=== PATIENT | male | born 1960 | race Caucasian/White ===

== ENCOUNTER 2020-12-04 07:37 | Outpatient (RCR) | payer OTHER, SELFPAY ==
[2020-12-04] MEDS: COVID-19 VACC, MRNA(PFIZER)/PF 30 MCG/0.3 ML SYRINGE IM (13:24)
[2020-12-25] MEDS: COVID-19 VACC, MRNA(PFIZER)/PF 30 MCG/0.3 ML SYRINGE IM (12:57)
== END 2021-03-02 23:59 ==
LOC: IMMUN 07:37
PROVIDERS: PCP Nurse Practitioner Primary Care; Referring Provider Family Medicine; Visit Provider Family Medicine
DX: Z23 Encounter for immunization (principal)
CPT/HCPCS: 0001A; 0002A; 91300

== ENCOUNTER 2022-10-27 07:55 | Day surgery (SDC) | payer OTHER, SELFPAY ==
[2022-10-27] VITALS (7 sets, daily range): BP systolic 117–135; BP diastolic 81–99; PULSE 17–84; RESP 16–17; TEMP 36.4–36.8; O2SAT 95–98; BMI 26.8
--- NOTE | 2022-10-27 | COLBX_PTH ---
PATIENT: YONG SCHULER LOC: EN U#:[id number] AGE/SX: 62/M ROOM: RE10/27/[address]: Dr. Anirudh Calvin DO : 1960 BED: DIS: 10/27/2022 SPEC #: [id number] RECD: 10/27/22 11:14 STATUS: JAVIER JAYA #: [id number] ALLEN: 10/27/22 00:[address]: Anirudh Calvin DEPT: SURGICAL PATHOLOGY RECD BY: Jay Bermudez ENTERED: 10/27/22 11:14 SP TYPE: COLON BX OT DR: Sybil Linton, [employer] Tissues: Sigmoid colon biopsy Procedures: Surgery Specimen Level IV HEADER OPERATION: Colonoscopy ? open access (MAC) PRE-OP DIAGNOSIS: Screening TISSUE SUBMITTED: Sigmoid colon polyp MICROSCOPIC DIAGNOSIS Sigmoid colon polyp, biopsy: Fragments of tubular adenoma. AM:geni 10/28/2022 MICROSCOPIC DESCRIPTION Slides are reviewed. GROSS DESCRIPTION Received in fixative is one container labeled with the patient's name and designated sigmoid colon polyp. The specimen consists of two irregular fragments of light kohli soft tissue that in aggregate measure 0.6 x 0.4 x 0.1 cm. The specimen is totally submitted in one cassette. / SJ:rg 10/27/2022 TC:5 CPT: 22057
[2022-10-27] MEDS: Lactated Ringers 1,000 ML 15 ML IV (08:10)
--- NOTE | 2022-10-27 08:25 | HP.PCM_ITS ---
HPI - General General Date of Admission: 10/27/22 Date of Service: 10/27/22 Chief Complaint: Screening colon HPI Narrative YONG SCHULER, is a 62 M who presents today for screening colonoscopy. He has a past medical history of arthritis, hypertension. He had a colonoscopy approximately 15 years ago and it was normal. He has no personal history of polyps. Is not having any bleeding. He has no family history of colon cancer or GI related malignancy. All other 16 review systems are negative except as per body mentioned [facility]. [facility] Medical History Alcohol use Cardiology follow-up encounter Heartburn Hemorrhoids History of diverticulitis HTN (hypertension) Low iron Mixed hyperlipidemia Non-smoker Rheumatoid arthritis Spondylitis, ankylosing Wears glasses Wears hearing aid Home Medications amlodipine 2.5 mg tablet 2.5 mg PO QHS 08/14/22 [History Last Taken Unknown] metoprolol tartrate 25 mg tablet 25 mg PO DAILY 08/14/22 [History Last Taken Unknown] etanercept 50 mg/mL (1 mL) subcutaneous syringe (Enbrel) 50 mg subcut QWEEK 09/05/22 [History Last Taken Unknown] isqwiqwk-iwjgahm-ocle-lutein tablet 1 tab PO DAILY 10/24/22 [History Last Taken Unknown] Allergy/AdvReac Type Severity Reaction Status Date / Time No Known Allergies Allergy Verified 10/27/22 08:27 Surgical History History of cardiac catheterization History of colonoscopy Social History (Updated 09/05/22 @ 10:29 by Ana Baer) household members: spouse Smoking Status: Never smoker ROS Review of Systems ROS Unobtainable: other Constitutional Constitutional: Denies fatigue, fever(s), poor appetite, weight gain or weight loss ENT HEENT: Denies mouth lesions Cardiovascular Cardiovascular: Denies abdominal bloating, abdominal edema or abdominal pain Respiratory/Chest Respiratory/Chest: Denies change in mental status, change in phlegm color, chest congestion or chest tightness Gastrointestinal Gastrointestinal: Denies belching, bloating, change in bowel habits, change in stool character, chewing difficulty, coffee ground emesis, constipation, cramping, diarrhea, dyspepsia, dysphagia, early satiety, excessive flatus, fecal incontinence, heartburn, hematemesis, hematochezia, hemorrhoids, loose stools, melena, nausea, odynophagia, rectal bleeding, tenesmus, vomiting or weight changes Genitourinary Genitourinary: Denies abdominal discomfort, burning urination or itching Musculoskeletal Musculoskeletal: Reports as per HPI; Denies muscle weakness or myalgias Integumentary Integumentary: Denies jaundice Neurologic Neurologic: Denies lack of coordination or weakness Psychiatric Psychiatric: Denies confusion, depression, memory loss, mood swings, paranoia or suicidal ideation Endocrine Endocrinology: Denies systems reviewed and no addt'l complaints, except as documented Hematologic/Lymphatic Hematologic/Lymphatic: Denies anemia, easy bleeding, easy bruising or lymphadenopathy Allergic/Immunologic Allergic/Immunologic: Denies systems reviewed and no addt'l complaints, except as documented Physical Exam Const alert General Appearance: cooperative Orientation / Consciousness: oriented to person HEENT hearing grossly normal bilaterally Head and Scalp: normal to inspection Face and Sinus: face symmetric Nose: external nose normal Mouth: oral and palatal mucosa normal Eyes conjunctivae normal General Eye: normal appearance of both eyes Neck full ROM General: normal visual inspection Lymph Lymphatic: no lymphadenopathy noted Chest inspection of chest normal and palpation of chest normal Chest: symmetrical chest wall rise Resp normal respiratory effort Effort and Inspection: able to speak in complete sentences Cardio regular rate GI non-distended Percussion: normal to percussion Rectal Exam: deferred Neuro Speech: speech normal Gait (Neuro): normal gait Assessment & Plan Assessment/Plan (1) Encounter for screening for malignant neoplasm of colon: PLAN: He was explained alternatives, risk, benefits include not withstanding bleeding, infection, sepsis, perforation, need for emergent surgery and . He will have an ASA of 1.
--- NOTE | 2022-10-27 09:40 | OP.COLON_ITS ---
Patient Name: Kendall Morales Procedure Date: 10/27/2022 9:04 AM Date of : 1960 Age: 62 Procedure: Colonoscopy Indications: Screening for colorectal malignant neoplasm Providers: Anirudh Calvin DO Medicines: Monitored Anesthesia Care Patient Profile: This is a 62 year old male. Refer to note in patient chart for documentation of history and physical. Last Colonoscopy: more than 10 years ago. Complications: No immediate complications. Procedure: Pre-Anesthesia Assessment: - Prior to the procedure, a History and Physical was performed, and patient medications and allergies were reviewed. The risks and benefits of the procedure and the sedation options and risks were discussed with the patient. All questions were answered and informed consent was obtained. Patient identification and proposed procedure were verified by the physician in the pre-procedure area. Mental Status Examination: alert and oriented. Airway Examination: normal oropharyngeal airway and neck mobility. Respiratory Examination: clear to auscultation. CV Examination: normal. Prophylactic Antibiotics: The patient does not require prophylactic antibiotics. Prior Anticoagulants: The patient has taken no previous anticoagulant or antiplatelet agents. After reviewing the risks and benefits, the patient was deemed in satisfactory condition to undergo the procedure. The anesthesia plan was to use monitored anesthesia care (MAC). Immediately prior to administration of medications, the patient was re-assessed for adequacy to receive sedatives. The heart rate, respiratory rate, oxygen saturations, blood pressure, adequacy of pulmonary ventilation, and response to care were monitored throughout the procedure. The physical status of the patient was re-assessed after the procedure. After I obtained informed consent, the scope was passed under direct vision. Throughout the procedure, the patient's blood pressure, pulse, and oxygen saturations were monitored continuously. The colonoscope was introduced through the anus and advanced to the cecum, identified by appendiceal orifice and ileocecal valve. The colonoscopy was performed without difficulty. The patient tolerated the procedure well. The quality of the bowel preparation was adequate. Scope In: 9:12:54 AM Scope Withdrawal Time 0 hours 11 minutes 55 seconds Scope Out: 9:27:48 AM Total Procedure Duration Time 0 hours 14 minutes 54 seconds Findings: The perianal and digital rectal examinations were normal. A 5 mm polyp was found in the sigmoid colon. The polyp was sessile. The polyp was removed with a cold snare. Resection and retrieval were complete. Verification of patient identification for the specimen was done. Estimated blood loss was minimal. Multiple small and large-mouthed diverticula were found in the recto-sigmoid colon and sigmoid colon. Impression: - One 5 mm polyp in the sigmoid colon, removed with a cold snare. Resected and retrieved. - Diverticulosis in the recto-sigmoid colon and in the sigmoid colon. Recommendation: - Discharge patient to home. - Resume previous diet. - Continue present medications. - Await pathology results. - Repeat colonoscopy in 5 years for screening purposes. Procedure Code(s): --- Professional --- 88796, Colonoscopy, flexible; with removal of tumor(s), polyp(s), or other lesion(s) by snare technique CPT copyright 2017 [employer]. All rights reserved. The codes documented in this report are preliminary and upon orthopedic coder review may be revised to meet current compliance requirements. Anirudh Calvin DO 10/27/2022 9:40:14 AM This report has been signed electronically. Number of Addenda: 0 Note Initiated On: 10/27/2022 9:04 AM
--- NOTE | 2022-10-27 09:40 | OP.CCLET_ITS ---
10/27/2022 Sybil Linton Re : Colonoscopy procedure for Kendall Morales Dear Royer This procedure was performed on October. My impressions and recommendations are as follows: Impressions : - One 5 mm polyp in the sigmoid colon, removed with a cold snare. Resected and retrieved. - Diverticulosis in the recto-sigmoid colon and in the sigmoid colon. Recommendations : - Discharge patient to home. - Resume previous diet. - Continue present medications. - Await pathology results. - Repeat colonoscopy in 5 years for screening purposes. My findings are described in the full procedure note, which is enclosed. If I can be of further assistance, please feel free to contact me at . Sincerely, Anirudh Calvin, 10/27/2022 9:40:14 AM This report has been signed electronically.
== END 2022-10-27 10:23 | disposition home or self-care (01) ==
LOC: EN 07:59 → AC 08:02
PROVIDERS: PCP Nurse Practitioner Primary Care; Referring Provider Internal Medicine Gastroenterology; Visit Provider Internal Medicine Gastroenterology
PROC: 0DJD8ZZ Inspection of Lower Intestinal Tract, Via Natural or Artificial Opening Endoscopic (ICD-10-PCS; CPT 45378; principal; 2022-10-27 08:55)
DX: Z12.11 Encounter for screening for malignant neoplasm of colon (principal); K57.30 Diverticulosis of large intestine without perforation or abscess without bleeding; K63.5 Polyp of colon; I10 Essential (primary) hypertension; E78.2 Mixed hyperlipidemia
CPT/HCPCS: 45385; 88305; J7120; J2405

== ENCOUNTER → 2025-07-31 | Outpatient (CLI) | payer OTHER, SELFPAY ==
[2025-07-31 11:36] LABS: PSA,Total- Diagnostic 1.53 ng/mL (0.00-4.00)
== END | disposition home or self-care (01) ==
LOC: LAB 10:06
PROVIDERS: PCP Nurse Practitioner Primary Care; Referring Provider Urology; Visit Provider Urology
DX: R97.20 Elevated prostate specific antigen [PSA] (principal)
CPT/HCPCS: 36415; 84153